=== PATIENT | female | born 1980 ===

== ENCOUNTER 2025-03-17 06:22 | Day surgery (SDC) | payer OTHER, SELFPAY ==
[2025-03-08 07:45] LABS: Hematocrit 47.6 % (37.0-47.0); Hemoglobin 15.6 g/dL (12.0-16.0); Mean Corp Hgb Conc. 32.8 g/dL (33.0-37.0); Mean Corpuscular Volume 89.5 fL (81.0-99.0); Platelet Count 453 10^3/uL (130-400); Red Cell Dist. Width 14.2 % (11.5-14.5)
[2025-03-08 07:48] LABS: INR 0.91; PT 12.6 Sec (11.4-14.6)
[2025-03-08 07:49] LABS: APTT 31.2 Sec (23.4-35.0)
[2025-03-08 08:11] LABS: ALT (SGPT) 19 U/L (0-35); AST (SGOT) 17 U/L (14-36); Albumin 4.6 g/dl (3.5-5.0); Alkaline Phosphatase 75 U/L (38-126); Blood Urea Nitrogen 15 mg/dl (7-17); Calcium 10.2 mg/dl (8.4-10.2); Carbon Dioxide 24 mmol/L (22-30); Chloride 110 mmol/L (98-107); Glucose 94 mg/dl (70-99); Potassium 4.5 mmol/L (3.5-5.1); Sodium 143 mmol/L (135-145); Total Protein 7.1 g/dl (6.3-8.2); eGFR > 60.00
[2025-03-08 10:05] LABS: Glycohemoglobin (HgbA1c) 5.5 % (4.0-5.6)
[2025-03-08 13:22] VITALS: BMI 35.0
[2025-03-17] VITALS (8 sets, daily range): BP systolic 123–146; BP diastolic 78–103; BMI 35.0
[2025-03-17] MEDS: TYLENOL 1000 MG PO (07:02)
[2025-03-17] MEDS: HEPARIN 5000 UNITS SC (07:02)
[2025-03-17] MEDS: NORMOSOL-R/PLASMALYTE-A 1000 IV (07:05)
== END 2025-03-17 11:47 | disposition home or self-care (01) ==
LOC: SDS 06:22
PROVIDERS: ATTENDING PHYSICIAN Surgery; FAMILY PHYSICIAN Family Medicine
DX: D12.1 Benign neoplasm of appendix (principal)
CPT/HCPCS: 44970; 36415; 80053; 83036; 85027; 85610; 85730; 86850; 86900; 86901; 88304; 88307; C1776; J1335